=== PATIENT | female | born 1990 | race Caucasian/White ===

== ENCOUNTER 2017-10-08 13:47 | Emergency (ER) ==
[2017-10-08 14:07] VITALS: BP 159/111; TEMP 97.2; BMI 38.4
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
[2017-10-08] MEDS: MORPHINE 4 MG/ML VIAL IVP STA (16:10)
[2017-10-08] MEDS: ZOFRAN 4 MG/2 ML IVP STA (16:11)
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
== END 2017-10-08 16:22 | disposition home or self-care (01) ==
LOC: ED 13:47
DX: S60.221A Contusion of right hand, initial encounter (principal); S79.922A Unspecified injury of left thigh, initial encounter; S79.921A Unspecified injury of right thigh, initial encounter; R51 Headache; M54.2 Cervicalgia; M54.5 Low back pain; V89.2XXA Person injured in unspecified motor-vehicle accident, traffic, initial encounter
CPT/HCPCS: 36415; 84703; 96375; 99284

== ENCOUNTER 2019-02-05 07:21 | Emergency (ER) ==
[2019-02-05] MEDS ORDERED: SODIUM CHLORIDE 1,000 ML IV STA (07:29)
[2019-02-05] MEDS ORDERED: ZOFRAN 4 MG/2 ML IVP STA ×2 (07:29→12:01)
[2019-02-05] MEDS ORDERED: MORPHINE 4 MG/ML SYRINGE IVP STA (07:29)
[2019-02-05 07:37] VITALS: BP 132/92; TEMP 98.2; BMI 40.9
--- NOTE | 2019-02-05 08:54 | US ---
EXAM: ULTRASOUND LOWER EXTREMITY VENOUS DOPPLER EXAM HISTORY: Leg pain. FINDINGS: Left lower extremity venous Doppler exam. Real time garrison-scale, Doppler spectral analysis and color-flow Doppler imaging performed. The veins targeted for evaluation include the common femo ral, greater saphenous, profundus, femoral, popliteal, peroneal, anterior tibial and posterior tibial . The evaluated veins demonstrated normal spontaneous flow and compression without evidence of thr ombosis. IMPRESSION: No venous thrombosis identified within the areas evaluated.
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
--- NOTE | 2019-02-05 11:14 | CT ---
EXAM: CT angiography abdomen aorta runoff bilateral lower extremities HISTORY: Left leg pain, unable to bear weight, no trauma COMPARISON: None TECHNIQUE: CT angiography abdomen aorta runoff bilateral lower extremities was performed without con trast. 3-D reformatted images created. FINDINGS: Please refer to separate report CT chest regarding findings in the lower chest. No free a ir. No acute abnormalities of the bones. Liver appears normal. The patient status post cholecystec micah. Pancreas unremarkable. Spleen mildly enlarged. Adrenals appear normal. Kidneys appear pancho l. No ascites. Bladder unremarkable. Uterus unremarkable. The stomach unremarkable. No dilated loops small bowel. The appendix appears normal. Colon unremarkable. No inflammatory stranding iden tified in the abdomen or pelvis. Several top normal sized right lower quadrant lymph nodes. The aorta normal in caliber. No aortic dissection. The celiac artery patent. SMA patent. The SITA patent. The renal arteries patent. Right: Common iliac artery patent without atherosclerotic narrowing. External iliac artery patent w ithout ascetic narrowing. Common femoral artery patent without atherosclerotic narrowing. Femoral a rtery patent without atherosclerotic narrowing. Popliteal artery patent without atherosclerotic narr owing. Three-vessel runoff on the right. Left: Common iliac artery patent without atherosclerotic narrowing. External iliac artery patent wi thout ascetic narrowing. Common femoral artery patent without atherosclerotic narrowing. Femoral ar rojelio patent without atherosclerotic narrowing. Popliteal artery patent without atherosclerotic narro wing. Probably three-vessel runoff on the left, noting venous contamination limits evaluation. Subcutaneous edema involving the left ankle and foot region. Suggestion of a left ankle joint effusi on with synovial enhancement, raises suspicion for septic arthritis. Adjacent to the focal area of fluid posterior to the ankle measuring 1.7 x 0.7 cm with peripheral enhancement raises suspicion for early abscess formation. The resolution of the area of adjacent fluid could relate to septic joint a nd/or early abscess formation. Less well demarcated fluid more medially about the midfoot/hindfoot m easuring up to 1.7 cm, nonspecific and could be infectious/inflammatory. IMPRESSION: 1. No aortic dissection or aneurysm. No significant atherosclerotic narrowing in the runoff vessels . Probably bilateral three-vessel runoff, noting venous contamination limits evaluation. 2. Left ankle joint effusion with associated synovial enhancement, raises suspicion for septic arthr itis. Associated abscess formation suggested as described. Left foot/ankle cellulitis suggested. 3. Several top normal sized right lower quadrant lymph nodes, nonspecific, though may represent mild mesenteric adenitis or be reactive. 4. Mild splenomegaly
--- NOTE | 2019-02-05 11:36 | ED.PDOC ---
General ED Provider: Dr. REBECA HINTON Chief Complaint: Ankle Pain/Injury Stated Complaint: R ANKLE/FOOT PAIN X 72 HRS. UNABLE TO BEAR WEIGHT RIGHT FOOT. PT WAS NOTED TO HAVE A BOUTS OF SALMONELLA GASTRO ENTRITIS WHICH WAS TREATED IN PT 2 WEEKS AGO. PT WAS SEEN AT [facility] E/D FOR THE LOWER EXT PAIN 3 DAYS AGO . Time Seen by Physician: 07:30 (SEEN WITH STAFF ) Mode of Arrival: Walk-In Information Source: Patient Exam Limitations: No limitations Primary Care Provider: RICHARD COMBS Nursing and Triage Documentation Reviewed and Agree: Yes Does patient meet sepsis criteria?: No System Inflammatory Response Syndrome: Not Applicable Sepsis Protocol: For patient's 13 years and over: Temp is 96.8 and below OR 101 and greater Pulse >90 BPM Resp >20/minute Acutely Altered Mental Status Are patient's symptoms suggestive of a new infection, such as: -Pneumonia -Skin, Soft Tissue -Endocarditis -UTI -Bone, Joint Infection -Implantable Device -Acute Abdominal Infection -Wound Infection -Meningitis -Blood Stream Catheter Infection -Unknown Musculoskeletal Complaint Exam - Ankle/Foot Complaint/Exam Location of Injury: Reports: Left, Ankle, Foot Mechanism of Injury: Reports: No known trauma Onset/Duration: 72 HRS AGO Symptoms Are: Reports: Still present Onset of Pain: Reports: Hours (72 HRS ) Initial Severity: Severe Current Severity: Mild Location: Reports: Discrete Character: Reports: Throbbing Review of Systems - Review Of Systems Constitutional: Reports: No symptoms Eyes: Reports: No symptoms Ears, Nose, Mouth, Throat: Reports: No symptoms Respiratory: Reports: No symptoms Cardiac: Reports: No symptoms GI: Reports: No symptoms : Reports: No symptoms Musculoskeletal: Reports: Joint pain (FOOT PAIN LEFT) Skin: Reports: No symptoms Neurological: Reports: No symptoms Endocrine: Reports: No symptoms Hematologic/Lymphatic: Reports: No symptoms All Other Systems: Reviewed and Negative Past Medical History - Past Medical History Previously Healthy: Yes Endocrine: Reports: None Cardiovascular: Reports: None Respiratory: Reports: None Hematological: Reports: None Gastrointestinal: Reports: None Genitourinary: Reports: None Neuro/Psych: Reports: Anxiety Musculoskeletal: Reports: None Cancer: Reports: None Last Menstrual Period: 2 DAYS AGO - Surgical History General Surgical History: Reports: Cholecystectomy, Tonsillectomy, Other (PE tubes, Septoplasty) - Family History Family History: Reports: None - Social History Smoking Status: Never smoker Hx Substance Use: No Alcohol Screening: Occasionally Physical Exam - Physical Exam Appearance: Well-appearing, No pain distress, Well-nourished Eyes: SILVIA, EOMI, Conjunctiva clear ENT: Ears normal, Nose normal, Oropharynx normal Respiratory: Airway patent, Breath sounds clear, Breath sounds equal, Respirations nonlabored Cardiovascular: RRR, Pulses normal, No rub, No murmur GI/: Soft, Nontender, No masses, Bowel sounds normal, No Organomegaly Musculoskeletal: Edema (ANKLE RIGHT PAIN RIGHT ANKLE) Skin: Warm, Dry, Normal color Neurological: Sensation intact, Motor intact, Reflexes intact, Cranial nerves intact, Alert, Oriented Psychiatric: Affect appropriate, Mood appropriate Re-Evaluation - Re-Evaluation Time of Re-Evaluation: 11:42 (RENEE STOVER ACCEPTED THE PT ) Status: Improved Vital Signs Stable: Yes Pain Level: 4/10 Lungs: Clear Skin: Warm and Dry Neuro: Alert and Oriented X3 CV: RRR Additional Comments: RENEE STOVER STATED DO NOT GIVE ANTIBIOTICS . DRAW ALL THE APPROIATE CULTURES Critical Care Note - Critical Care Note Total Time (mins): 0 Course - Course Hematology/Chemistry: 02/05/19 07:45 02/05/19 07:45 Orders, Labs, Meds: Lab Review 02/05/19 02/05/19 02/05/19 07:30 07:45 07:45 WBC 12.22 H RBC 4.27 Hgb 12.8 Hct 37.9 MCV 88.8 MCH 30.0 MCHC 33.8 RDW Coeff of Ana Rosa 12.8 Plt Count 288 Immature Gran % (Auto) 1.0 Neut % (Auto) 69.6 Lymph % (Auto) 19.5 [place] % (Auto) 7.4 Eos % (Auto) 1.9 Baso % (Auto) 0.6 Immature Gran # (Auto) 0.1 Neut # (Auto) 8.5 H Lymph # (Auto) 2.4 [place] # (Auto) 0.9 Eos # (Auto) 0.2 Baso # (Auto) 0.1 PT 8.9 L INR 0.89 APTT 25.6 Sodium Potassium Chloride Carbon Dioxide Anion Gap BUN Creatinine Estimated GFR (MDRD) BUN/Creatinine Ratio Glucose Uric Acid 2.99 Calcium Total Bilirubin AST ALT Alkaline Phosphatase Total Creatine Kinase CK-MB (CK-2) CK-MB (CK-2) % Troponin I Total Protein Albumin Globulin Albumin/Globulin Ratio Serum , Qual 02/05/19 02/05/19 07:45 07:45 WBC RBC Hgb Hct MCV MCH MCHC RDW Coeff of Ana Rosa Plt Count Immature Gran % (Auto) Neut % (Auto) Lymph % (Auto) [place] % (Auto) Eos % (Auto) Baso % (Auto) Immature Gran # (Auto) Neut # (Auto) Lymph # (Auto) [place] # (Auto) Eos # (Auto) Baso # (Auto) PT INR APTT Sodium 139.0 Potassium 4.08 Chloride 108.4 H Carbon Dioxide 24.3 Anion Gap 10.38 BUN 15.0 Creatinine 0.56 L Estimated GFR (MDRD) 131.00 BUN/Creatinine Ratio 26.78 Glucose 98.3 Uric Acid Calcium 8.80 Total Bilirubin 0.39 AST 27.8 ALT 28.0 Alkaline Phosphatase 94.5 Total Creatine Kinase 171.2 H CK-MB (CK-2) 1.200 CK-MB (CK-2) % 0.7000 Troponin I < 0.012 Total Protein 6.81 Albumin 4.04 Globulin 2.77 Albumin/Globulin Ratio 1.45 Serum , Qual Negative Orders Category Date Time Status EKG-(ED ONLY) Stat CARDIO 02/05/19 07:27 Completed NPO REMINDER: IMAGING ONCE CARE 02/05/19 07:25 Active NPO REMINDER: IMAGING ONCE CARE 02/05/19 07:27 Active ED IV/MEDIPORT/POWERPORT .ONCE EMERGENCY 02/05/19 07:27 Active CBC W/ AUTO DIFF Stat LAB 02/05/19 07:45 Completed COMPREHENSIVE METABOLIC PANEL Stat LAB 02/05/19 07:45 Completed CREATINE KINASE Stat LAB 02/05/19 07:45 Completed PARTIAL THROMBOPLASTIN TIME Stat LAB 02/05/19 07:45 Completed PT WITH INR Stat LAB 02/05/19 07:45 Completed SERUM Stat LAB 02/05/19 07:45 Completed TROPONIN I Stat LAB 02/05/19 07:45 Completed URIC ACID Stat LAB 02/05/19 07:30 Completed 0.9 % Sodium Chloride [Saline Flush] MEDS 02/05/19 07:27 Active 1 syr IVF PRN PRN Morphine Sulfate [Morphine 4 mg/ml Syringe] MEDS 02/05/19 07:29 Discontinued 4 mg IVP ONCE STA Ondansetron HCl/Pf [Zofran 4 mg/2 ml] MEDS 02/05/19 07:29 Discontinued 4 mg IVP ONCE STA Sodium Chloride 0.9% [Sodium Chloride] 1,000 ml MEDS 02/05/19 07:29 Active IV 125 mls/hr CT CHEST PE PROTOCOL Stat RADS 02/05/19 07:26 Completed CTA AORTA RUNOFF Stat RADS 02/05/19 07:22 Completed U/S VENOUS SCAN LT LEG Stat RADS 02/05/19 07:55 Completed Medications Generic Name Dose Route Start Last Admin Trade Name Freq PRN Reason Stop Dose Admin Sodium Chloride 1,000 mls @ 125 mls/hr 02/05/19 07:29 02/05/19 08:16 Sodium Chloride IV 02/05/19 15:28 125 mls/hr .Q8H STA Administration Sodium Chloride 1 syr 02/05/19 07:27 02/05/19 08:07 Saline Flush IVF 1 syr PRN PRN Administration To flush IV Discontinued Medications Generic Name Dose Route Start Last Admin Trade Name Freq PRN Reason Stop Dose Admin Morphine Sulfate 4 mg 02/05/19 07:29 02/05/19 08:06 Morphine 4 Mg/Ml Syringe IVP 02/05/19 07:30 4 mg ONCE STA Administration Ondansetron HCl 4 mg 02/05/19 07:29 02/05/19 08:06 Zofran 4 Mg/2 Ml IVP 02/05/19 07:30 4 mg ONCE STA Administration Vital Signs: Temp Pulse Resp BP Pulse Ox 02/05/19 07:29 98.2 F 95 H 22 132/92 H 96 Departure - Departure Time of Disposition: 11:43 Disposition: TSF SHORT-TRM HOSP Discharge Problem: Ankle pain, Cellulitis of foot Instructions: Cellulitis (DC) Condition: Good Pt referred to PMD for follow-up: Yes IPMP verified?: No Additional Instructions: Please call your Family Physician as soon as possible to schedule a follow-up appointment. Allergies/Adverse Reactions: Allergies chlorhexidine Adverse Reaction (Verified 02/05/19 07:29) lanolin Adverse Reaction (Verified 02/05/19 07:29) Home Medications: Ambulatory Orders Gabapentin 900 mg PO TID 10/08/17 Alprazolam [Xanax] 1 mg PO BID 02/05/19 Dicyclomine HCl 20 mg PO TID 02/05/19 Omeprazole 40 mg PO BID 02/05/19 Ondansetron HCl [Zofran] 4 mg PO BID PRN 02/05/19 Trazodone HCl [Desyrel] 50 mg PO BEDTIME 02/05/19
[2019-02-05] MEDS ORDERED: DILAUDID 0.5 MG/0.5 ML SYRINGE IVP STA (11:54)
== END 2019-02-05 12:42 | disposition short-term general hospital (02) ==
LOC: ED 07:21
DX: M25.571 Pain in right ankle and joints of right foot (principal); L03.116 Cellulitis of left lower limb; M79.672 Pain in left foot; Z79.899 Other long term (current) drug therapy
CPT/HCPCS: 36415; 80053; 82550; 82553; 83605; 84145; 84484; 84550; 84703; 85025; 85610; 85730; 87040; 93005; 93010; 96374; 96375; 96376; 99285

== ENCOUNTER 2019-02-05 12:45 | Outpatient (CLI) ==
[2019-02-05 07:37] VITALS: BMI 40.9
== END 2019-02-05 13:52 | disposition short-term general hospital (02) ==
LOC: AMBL 12:45
PROVIDERS: ATTEND Internal Medicine
DX: M25.572 Pain in left ankle and joints of left foot (principal); R60.0 Localized edema

== ENCOUNTER 2019-02-15 12:23 | Outpatient (CLI) ==
[2019-02-15 13:12] VITALS: BP 113/63; TEMP 98.2
[2019-02-15] MEDS ORDERED: INVANZ IM STA (13:17)
[2019-02-15] MEDS ORDERED: LIDOCAINE HCL 1% SDV IM STA (13:17)
[2019-02-15] MEDS ORDERED: INVANZ 1 GM in SODIUM CHLORIDE 50 ML IV STA (13:26)
== END 2019-02-15 12:24 | disposition home or self-care (01) ==
LOC: OPMED 12:23
PROVIDERS: ATTEND Internal Medicine Infectious Disease
DX: M00.872 Arthritis due to other bacteria, left ankle and foot (principal); B96.89 Other specified bacterial agents as the cause of diseases classified elsewhere; A02.2 Localized salmonella infections
CPT/HCPCS: 36415; 80053; 85025; 85651; 86140; 96365

== ENCOUNTER 2019-02-16 12:57 | Outpatient (CLI) ==
[2019-02-16] MEDS ORDERED: INVANZ 1 GM in SODIUM CHLORIDE 50 ML IV STA (13:09)
[2019-02-16 13:11] VITALS: TEMP 98.6
== END 2019-02-16 12:58 | disposition home or self-care (01) ==
LOC: OPMED 12:57
PROVIDERS: ATTEND Internal Medicine Infectious Disease
DX: M00.872 Arthritis due to other bacteria, left ankle and foot (principal); B96.89 Other specified bacterial agents as the cause of diseases classified elsewhere; A02.2 Localized salmonella infections
CPT/HCPCS: 96365; 96375

== ENCOUNTER 2019-02-17 13:17 | Outpatient (CLI) ==
[2019-02-17] MEDS ORDERED: INVANZ 1 GM in SODIUM CHLORIDE 50 ML IV STA (13:29)
[2019-02-17 13:39] VITALS: BP 113/77; TEMP 98.1
== END 2019-02-17 13:18 | disposition home or self-care (01) ==
LOC: OPMED 13:17
PROVIDERS: ATTEND Internal Medicine Infectious Disease
DX: M00.872 Arthritis due to other bacteria, left ankle and foot (principal); B96.89 Other specified bacterial agents as the cause of diseases classified elsewhere; A02.2 Localized salmonella infections
CPT/HCPCS: 96365

== ENCOUNTER 2019-02-18 14:09 | Outpatient (CLI) ==
[2019-02-18] MEDS ORDERED: INVANZ 1 GM in SODIUM CHLORIDE 50 ML IV STA (14:19)
[2019-02-18 14:51] VITALS: BP 138/88; TEMP 97.3
== END 2019-02-18 14:10 | disposition home or self-care (01) ==
LOC: OPMED 14:09
PROVIDERS: ATTEND Internal Medicine Infectious Disease
DX: M00.872 Arthritis due to other bacteria, left ankle and foot (principal); B96.89 Other specified bacterial agents as the cause of diseases classified elsewhere; A02.2 Localized salmonella infections
CPT/HCPCS: 96365

== ENCOUNTER 2019-02-19 13:35 | Outpatient (CLI) ==
[2019-02-19] MEDS ORDERED: INVANZ 1 GM in SODIUM CHLORIDE 50 ML IV STA (13:49)
[2019-02-19 13:58] VITALS: BP 129/87; TEMP 98
== END 2019-02-19 13:36 | disposition home or self-care (01) ==
LOC: OPMED 13:35
PROVIDERS: ATTEND Internal Medicine Infectious Disease
DX: M00.872 Arthritis due to other bacteria, left ankle and foot (principal); B96.89 Other specified bacterial agents as the cause of diseases classified elsewhere; A02.2 Localized salmonella infections
CPT/HCPCS: 96365

== ENCOUNTER 2019-02-20 08:58 | Outpatient (CLI) ==
[2019-02-20 10:08] VITALS: BP 125/66; TEMP 98.5
[2019-02-20] MEDS ORDERED: INVANZ 1 GM in SODIUM CHLORIDE 50 ML IV STA (10:11)
== END 2019-02-20 08:59 | disposition home or self-care (01) ==
LOC: OPMED 08:58
PROVIDERS: ATTEND Internal Medicine Infectious Disease
DX: M00.872 Arthritis due to other bacteria, left ankle and foot (principal); B96.89 Other specified bacterial agents as the cause of diseases classified elsewhere; A02.2 Localized salmonella infections
CPT/HCPCS: 96365

== ENCOUNTER 2019-02-21 11:13 | Outpatient (CLI) ==
[2019-02-21 11:26] VITALS: BP 130/96; TEMP 97.8
[2019-02-21] MEDS ORDERED: INVANZ 1 GM in SODIUM CHLORIDE 50 ML IV STA (11:29)
== END 2019-02-21 11:14 | disposition home or self-care (01) ==
LOC: OPMED 11:13
PROVIDERS: ATTEND Internal Medicine Infectious Disease
DX: M00.872 Arthritis due to other bacteria, left ankle and foot (principal); B96.89 Other specified bacterial agents as the cause of diseases classified elsewhere; A02.2 Localized salmonella infections
CPT/HCPCS: 96365

== ENCOUNTER 2019-02-22 09:56 | Outpatient (CLI) ==
[2019-02-22] MEDS ORDERED: INVANZ 1 GM in SODIUM CHLORIDE 50 ML IV STA (10:15)
[2019-02-22 15:01] VITALS: BP 122/56; TEMP 98.3
== END 2019-02-22 09:57 | disposition home or self-care (01) ==
LOC: OPMED 09:56
PROVIDERS: ATTEND Internal Medicine Infectious Disease
DX: M00.872 Arthritis due to other bacteria, left ankle and foot (principal); B96.89 Other specified bacterial agents as the cause of diseases classified elsewhere; A02.2 Localized salmonella infections
CPT/HCPCS: 36415; 80053; 85025; 85651; 86140; 96365

== ENCOUNTER 2019-02-23 14:27 | Outpatient (CLI) ==
[2019-02-23 14:39] VITALS: BP 135/86; TEMP 97.8
[2019-02-23] MEDS ORDERED: INVANZ 1 GM in SODIUM CHLORIDE 50 ML IV STA (14:43)
== END 2019-02-23 14:28 | disposition home or self-care (01) ==
LOC: OPMED 14:27
PROVIDERS: ATTEND Internal Medicine Infectious Disease
DX: M00.872 Arthritis due to other bacteria, left ankle and foot (principal); B96.89 Other specified bacterial agents as the cause of diseases classified elsewhere; A02.2 Localized salmonella infections
CPT/HCPCS: 96365

== ENCOUNTER 2019-02-24 13:18 | Outpatient (CLI) ==
[2019-02-24] MEDS ORDERED: INVANZ 1 GM in SODIUM CHLORIDE 50 ML IV STA (13:29)
== END 2019-02-24 13:19 | disposition home or self-care (01) ==
LOC: OPMED 13:18
PROVIDERS: ATTEND Internal Medicine Infectious Disease
DX: M00.872 Arthritis due to other bacteria, left ankle and foot (principal); B96.89 Other specified bacterial agents as the cause of diseases classified elsewhere; A02.2 Localized salmonella infections
CPT/HCPCS: 96365

== ENCOUNTER 2019-02-25 13:02 | Outpatient (CLI) ==
[2019-02-25] MEDS ORDERED: INVANZ 1 GM in SODIUM CHLORIDE 50 ML IV STA (13:10)
== END 2019-02-25 13:03 | disposition home or self-care (01) ==
LOC: OPMED 13:02
PROVIDERS: ATTEND Internal Medicine Infectious Disease
DX: M00.872 Arthritis due to other bacteria, left ankle and foot (principal); B96.89 Other specified bacterial agents as the cause of diseases classified elsewhere; A02.2 Localized salmonella infections
CPT/HCPCS: 96365

== ENCOUNTER 2019-02-26 11:04 | Outpatient (CLI) ==
[2019-02-26 11:15] VITALS: BP 133/99; TEMP 97.8
[2019-02-26] MEDS ORDERED: INVANZ 1 GM in SODIUM CHLORIDE 50 ML IV STA (11:17)
== END 2019-02-26 11:05 | disposition home or self-care (01) ==
LOC: OPMED 11:04
PROVIDERS: ATTEND Internal Medicine Infectious Disease
DX: M00.872 Arthritis due to other bacteria, left ankle and foot (principal); B96.89 Other specified bacterial agents as the cause of diseases classified elsewhere; A02.2 Localized salmonella infections
CPT/HCPCS: 96365

== ENCOUNTER 2019-02-27 10:01 | Outpatient (CLI) ==
[2019-02-27 10:33] VITALS: BP 132/66; TEMP 98.2
[2019-02-27] MEDS ORDERED: INVANZ 1 GM in SODIUM CHLORIDE 50 ML IV STA (10:35)
== END 2019-02-27 10:02 | disposition home or self-care (01) ==
LOC: OPMED 10:01
PROVIDERS: ATTEND Internal Medicine Infectious Disease
DX: M00.872 Arthritis due to other bacteria, left ankle and foot (principal); B96.89 Other specified bacterial agents as the cause of diseases classified elsewhere; A02.2 Localized salmonella infections
CPT/HCPCS: 96365

== ENCOUNTER 2019-02-28 07:19 | Outpatient (CLI) ==
[2019-02-28 07:36] VITALS: BP 120/75; TEMP 97.8
[2019-02-28] MEDS ORDERED: INVANZ 1 GM in SODIUM CHLORIDE 50 ML IV STA (07:38)
== END 2019-02-28 07:20 | disposition home or self-care (01) ==
LOC: OPMED 07:19
PROVIDERS: ATTEND Internal Medicine Infectious Disease
DX: M00.872 Arthritis due to other bacteria, left ankle and foot (principal); B96.89 Other specified bacterial agents as the cause of diseases classified elsewhere; A02.2 Localized salmonella infections
CPT/HCPCS: 96365

== ENCOUNTER 2019-03-01 10:06 | Outpatient (CLI) ==
[2019-03-01 10:24] VITALS: BP 132/99; TEMP 97.4
[2019-03-01] MEDS ORDERED: INVANZ 1 GM in SODIUM CHLORIDE 50 ML IV STA (10:28)
== END 2019-03-01 10:07 | disposition home or self-care (01) ==
LOC: OPMED 10:06
PROVIDERS: ATTEND Internal Medicine Infectious Disease
DX: M13.10 Monoarthritis, not elsewhere classified, unspecified site (principal); M00.872 Arthritis due to other bacteria, left ankle and foot; B96.89 Other specified bacterial agents as the cause of diseases classified elsewhere; A02.2 Localized salmonella infections
CPT/HCPCS: 96365

== ENCOUNTER 2019-05-14 17:25 | Emergency (ER) ==
[2019-05-14 17:33] VITALS: BP 152/98; TEMP 99; BMI 38.6
[2019-05-14] MEDS ORDERED: MORPHINE 2 MG/ML SYRINGE IVP STA (18:39)
[2019-05-14] MEDS ORDERED: SODIUM CHLORIDE 1,000 ML IV STA (18:40)
[2019-05-14] MEDS ORDERED: ZOFRAN 4 MG/2 ML IM STA (18:40)
--- NOTE | 2019-05-14 18:44 | ED.PDOC ---
General Stated Complaint: ankle , foot pain left pain Time Seen by Physician: 17:30 Mode of Arrival: Wheelchair Information Source: Patient Exam Limitations: No limitations Nursing and Triage Documentation Reviewed and Agree: Yes Does patient meet sepsis criteria?: No System Inflammatory Response Syndrome: Not Applicable <REBECA HINTON - Last Filed: 05/14/19 18:42> <YANIRA COLE - Last Filed: 05/14/19 21:17> ED Provider: Dr. YANIRA COLE Chief Complaint: Ankle Pain/Injury Primary Care Provider: RICHARD COMBS Sepsis Protocol: For patient's 13 years and over: Temp is 96.8 and below OR 101 and greater Pulse >90 BPM Resp >20/minute Acutely Altered Mental Status Are patient's symptoms suggestive of a new infection, such as: -Pneumonia -Skin, Soft Tissue -Endocarditis -UTI -Bone, Joint Infection -Implantable Device -Acute Abdominal Infection -Wound Infection -Meningitis -Blood Stream Catheter Infection -Unknown Musculoskeletal Complaint Exam - Ankle/Foot Complaint/Exam Location of Injury: Reports: Left, Ankle, Foot Mechanism of Injury: Reports: Other Onset/Duration: weeks Symptoms Are: Reports: Still present Onset of Pain: Reports: Weeks Initial Severity: Moderate Current Severity: Moderate Location: Reports: Discrete Character: Reports: Aching, Throbbing, Spasmodic Alleviating: Reports: Rest, Position Aggravating: Reports: Movement, Weight bearing, Prolonged standing Able to Bear Weight: Yes (has pain) Associated Signs and Symptoms: Denies: Swelling, Redness, Bruising, Fever, Weakness, Numbness, Tingling Gout Risk Factors: Reports: None Related Surgical History: Reports: None Achilles Tendon Abnormality: No Tenderness: Present: Medial malleolus, Lateral malleolus, Achilles insertion, Midfoot, Metatarsals Differential Diagnosis: Infection, Closed Fracture <REBECA HINTON - Last Filed: 05/14/19 18:42> Review of Systems - Review Of Systems Constitutional: Reports: No symptoms Eyes: Reports: No symptoms Ears, Nose, Mouth, Throat: Reports: No symptoms Respiratory: Reports: No symptoms Cardiac: Reports: No symptoms GI: Reports: No symptoms : Reports: No symptoms Musculoskeletal: Reports: Joint pain (foot) Skin: Reports: No symptoms Neurological: Reports: No symptoms Endocrine: Reports: No symptoms Hematologic/Lymphatic: Reports: No symptoms All Other Systems: Reviewed and Negative <REBECA HINTON - Last Filed: 05/14/19 18:42> Past Medical History - Past Medical History Previously Healthy: Yes Endocrine: Reports: None Cardiovascular: Reports: None Respiratory: Reports: None Hematological: Reports: None Gastrointestinal: Reports: None Genitourinary: Reports: None Neuro/Psych: Reports: Anxiety Musculoskeletal: Reports: None Cancer: Reports: None Last Menstrual Period: 04/27/19 - Surgical History General Surgical History: Reports: Cholecystectomy, Tonsillectomy, Other (PE tubes, Septoplasty) - Family History Family History: Reports: None - Social History Smoking Status: Never smoker Hx Substance Use: No Alcohol Screening: None - Immunizations Tetanus Shot up to Date: Yes <MARY JANEREBECA - Last Filed: 05/14/19 18:42> Physical Exam - Physical Exam Appearance: Well-appearing, No pain distress, Well-nourished Eyes: SILVIA, EOMI, Conjunctiva clear ENT: Ears normal, Nose normal, Oropharynx normal Respiratory: Airway patent, Breath sounds clear, Breath sounds equal, Respirations nonlabored Cardiovascular: RRR, Pulses normal, No rub, No murmur GI/: Soft, Nontender, No masses, Bowel sounds normal, No Organomegaly Musculoskeletal: Normal strength, ROM intact, No edema, No calf tenderness Skin: Warm, Dry, Normal color Neurological: Sensation intact, Motor intact, Reflexes intact, Cranial nerves intact, Alert, Oriented Psychiatric: Affect appropriate, Mood appropriate <MARY JANEREBECA Last Filed: 05/14/19 18:42> Interpretation - Radiology Interpretation Radiology Interpretation By: Radiologist Radiology Results: No acute changes Exam Interpreted: CT Scan <YANIRA COLE - Last Filed: 05/14/19 21:17> Critical Care Note - Critical Care Note Total Time (mins): 0 <MARY JANEREBECA - Last Filed: 05/14/19 18:42> Course - Course Hematology/Chemistry: 05/14/19 19:03 05/14/19 19:03 <YANIRA COLE - Last Filed: 05/14/19 21:17> - Course Orders, Labs, Meds: Lab Review 05/14/19 05/14/19 05/14/19 19:03 19:03 19:03 WBC 9.82 RBC 4.29 Hgb 12.9 Hct 37.9 MCV 88.3 MCH 30.1 MCHC 34.0 RDW Coeff of Ana Rosa 12.8 Plt Count 273 Immature Gran % (Auto) 0.2 Neut % (Auto) 60.0 Lymph % (Auto) 29.1 [place] % (Auto) 6.6 Eos % (Auto) 3.3 Baso % (Auto) 0.8 Immature Gran # (Auto) 0.0 Neut # (Auto) 5.9 Lymph # (Auto) 2.9 [place] # (Auto) 0.7 Eos # (Auto) 0.3 Baso # (Auto) 0.1 ESR 7 Sodium 138.1 Potassium 3.63 Chloride 107.0 Carbon Dioxide 20.5 L Anion Gap 14.23 BUN 15.2 Creatinine 0.74 Estimated GFR (MDRD) 95.00 BUN/Creatinine Ratio 20.54 Glucose 92.6 Calcium 9.38 Total Bilirubin 0.57 AST 48.1 H ALT 30.4 Alkaline Phosphatase 102.0 Total Protein 7.64 Albumin 4.34 Globulin 3.30 Albumin/Globulin Ratio 1.31 Serum , Qual 05/14/19 19:03 WBC RBC Hgb Hct MCV MCH MCHC RDW Coeff of Ana Rosa Plt Count Immature Gran % (Auto) Neut % (Auto) Lymph % (Auto) [place] % (Auto) Eos % (Auto) Baso % (Auto) Immature Gran # (Auto) Neut # (Auto) Lymph # (Auto) [place] # (Auto) Eos # (Auto) Baso # (Auto) ESR Sodium Potassium Chloride Carbon Dioxide Anion Gap BUN Creatinine Estimated GFR (MDRD) BUN/Creatinine Ratio Glucose Calcium Total Bilirubin AST ALT Alkaline Phosphatase Total Protein Albumin Globulin Albumin/Globulin Ratio Serum , Qual Negative Orders Category Date Time Status NPO REMINDER: IMAGING ONCE CARE 05/14/19 18:39 Completed ED APPLY ICE AFFECTED AREA .ONCE EMERGENCY 05/14/19 19:56 Active ED IV/MEDIPORT/POWERPORT .ONCE EMERGENCY 05/14/19 18:40 Active BLOOD CULTURE Stat LAB 05/14/19 19:03 Received CBC W/ AUTO DIFF Stat LAB 05/14/19 19:03 Completed COMPREHENSIVE METABOLIC PANEL Stat LAB 05/14/19 19:03 Completed ESR Stat LAB 05/14/19 19:03 Completed SERUM Stat LAB 05/14/19 19:03 Completed 0.9 % Sodium Chloride [Saline Flush] MEDS 05/14/19 18:40 Active 1 syr IVF PRN PRN Hydromorphone HCl [Dilaudid 1 mg/ml Syringe] MEDS 05/14/19 19:56 Discontinued 1 mg IVP ONCE STA Ketorolac Tromethamine [Toradol] MEDS 05/14/19 19:56 Discontinued 30 mg IVP ONCE STA Morphine Sulfate [Morphine 2 mg/ml Syringe] MEDS 05/14/19 18:39 Discontinued 4 mg IVP ONCE STA Ondansetron HCl/Pf [Zofran 4 mg/2 ml] MEDS 05/14/19 18:40 Discontinued 4 mg IM ONCE STA Sodium Chloride 0.9% [Sodium Chloride] 1,000 ml MEDS 05/14/19 18:40 Active IV 200 mls/hr CT FOOT LEFT W/WO CONTRAST Stat RADS 05/14/19 18:38 Completed Medications Generic Name Dose Route Start Last Admin Trade Name Spencer PRN Reason Stop Dose Admin Sodium Chloride 1,000 mls @ 200 mls/hr 05/14/19 18:40 05/14/19 18:56 Sodium Chloride IV 05/14/19 23:39 200 mls/hr .Q5H STA Administration Sodium Chloride 1 syr 05/14/19 18:40 05/14/19 20:33 Saline Flush IVF 1 syr PRN PRN Administration To flush IV Discontinued Medications Generic Name Dose Route Start Last Admin Trade Name Freq PRN Reason Stop Dose Admin Hydromorphone HCl 1 mg 05/14/19 19:56 05/14/19 20:33 Dilaudid 1 Mg/Ml Syringe IVP 05/14/19 19:57 1 mg ONCE STA Administration Ketorolac Tromethamine 30 mg 05/14/19 19:56 05/14/19 20:33 Toradol IVP 05/14/19 19:57 30 mg ONCE STA Administration Morphine Sulfate 4 mg 05/14/19 18:39 05/14/19 18:50 Morphine 2 Mg/Ml Syringe IVP 05/14/19 18:40 4 mg ONCE STA Administration Ondansetron HCl 4 mg 05/14/19 18:40 05/14/19 18:50 Zofran 4 Mg/2 Ml IM 05/14/19 18:41 4 mg ONCE STA Administration Vital Signs: Temp Pulse Resp BP Pulse Ox 05/14/19 17:26 99.0 F 110 H 16 152/98 H 98 Departure - Departure Time of Disposition: 18:44 Pt referred to PMD for follow-up: Yes IPMP verified?: No Disposition Discussed With: Patient <REBECA HINTON - Last Filed: 05/14/19 18:42> - Departure Time of Disposition: 20:42 <YANIRA COLE - Last Filed: 05/14/19 21:17> - Departure Disposition: HOME SELF-CARE Discharge Problem: Foot pain, left, Enthesopathy of left ankle Instructions: Achilles Tendinitis (ED), Arthralgia (ED), Plantar Fasciitis Exercises (ED) Condition: Good Additional Instructions: Please call your Family Physician as soon as possible to schedule a follow-up appointment. Enthesitis (or enthesopathy) refers to inflammation around the enthesis, which is the site of insertion of ligaments, tendons, joint capsule, or fascia to bone. The enthesis is composed of dense collagen, fibrocartilage, adjacent bursae, and synovial folds. The most common observable clinical manifestation of enthesitis is swelling at the heels, at the insertion of the Achilles tendon , or at the insertion of the plantar fascia ligament into the calcaneus. It is usually associated with severe pain and tenderness. Prescriptions: Hydrocodone Bit/Acetaminophen [Newberry 5-325] 1 each PO Q6HR PRN #15 tablet PRN Reason: severe pain Allergies/Adverse Reactions: Allergies chlorhexidine Adverse Reaction (Verified 03/01/19 10:25) lanolin Adverse Reaction (Verified 03/01/19 10:25) Home Medications: Ambulatory Orders Gabapentin 900 mg PO TID 10/08/17 Alprazolam [Xanax] 1 mg PO BID 02/05/19 Dicyclomine HCl 20 mg PO TID 02/05/19 Omeprazole 40 mg PO BID 02/05/19 Ondansetron HCl [Zofran] 4 mg PO BID PRN 02/05/19 Trazodone HCl [Desyrel] 50 mg PO BEDTIME 02/05/19 Hydrocodone Bit/Acetaminophen [Newberry 5-325] 1 each PO Q6HR PRN #15 tablet Sildenafil Citrate [Viagra] 25 mg PO DAILY 05/14/19
[2019-05-14] MEDS ORDERED: TORADOL IVP STA (19:56)
[2019-05-14] MEDS ORDERED: DILAUDID 1 MG/ML SYRINGE IVP STA (19:56)
--- NOTE | 2019-05-14 20:29 | CT ---
EXAM: CT left foot without and with intravenous contrast 05/14/2019. Sagittal and coronal reformatt ed images obtained. Three-dimensional reconstructed images provided HISTORY: Pain. Unable to flex foot COMPARISON: 02/05/2019 FINDINGS: Stranding within the subcutaneous tissues most compatible with edema. There is no organiz ed fluid collection. No abscess. The distal tibia and fibula appear intact. Normal anatomic alignment level of the ankle. 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 The osseous structures of the fo ot appear intact. There is no evidence of fracture or dislocation. IMPRESSION: 1. No acute osseous abnormality. 2. Subcutaneous edema. No underlying fluid collection or abscess.
== END 2019-05-14 21:20 | disposition home or self-care (01) ==
LOC: ED 17:25
DX: M76.62 Achilles tendinitis, left leg (principal); M25.572 Pain in left ankle and joints of left foot
CPT/HCPCS: 36415; 80053; 84703; 85025; 85651; 87040; 96361; 96372; 96374; 96375; 99284